=== PATIENT | male | born 1985 | race Caucasian/White ===

== ENCOUNTER 2018-08-15 08:14 | Day surgery (SDC) | payer OTHER ==
[2018-08-09 10:58] VITALS: BMI 28.2
--- NOTE | 2018-08-15 07:14 | HP ---
History & Physical Update - History History: No Change - Physical Physical: No Change - Assessment Assessment: No Change - Plan Plan: No Change (Initial H&P is in his paper chart. No new complaints or medications. Here today for L4-S1 TLIF.)
[2018-08-15] MEDS ORDERED: CEFAZOLIN 2 GM/D5W 2 GM/50 ML ML IVPB ONE (08:25)
[2018-08-15] MEDS ORDERED: oxyCODONE HCL 10 MG SUSTAINED ACTING TABLET PO STA (08:25)
[2018-08-15] MEDS ORDERED: oxyCODONE HCL 10 MG SUSTAINED ACTING TABLET ONE (09:05)
[2018-08-15] MEDS ORDERED: methylPREDNISolone ACET (DEPO) 40 MG/1 ML VIAL ONE (10:20)
[2018-08-15] MEDS ORDERED: LIDOCAINE 1%/EPI 1:100000 (20 ML MULTI DOSE VIAL) ONE (10:21)
[2018-08-15] MEDS ORDERED: THROMBIN (BOVINE) 5,000 UNIT VIAL TP ONE ×2 (10:21→12:02)
[2018-08-15] MEDS ORDERED: MIDAZOLAM HCL 2 MG/2 ML SINGLE DOSE VIAL ONE ×2 (10:32→12:06)
[2018-08-15] MEDS ORDERED: ROPIVACAINE HCL 0.5% 30ML VIAL ONE (10:32)
[2018-08-15] MEDS ORDERED: BUPIVACAINE HCL/PF 0.5% (5MG/ML) 10 ML VIAL ONE (11:07)
[2018-08-15] MEDS ORDERED: GUM MASTIC/STORAX/MSAL/ALCOHOL 1 DRP DROPSBTL MC ONE (11:41)
[2018-08-15] MEDS ORDERED: ceFAZolin SODIUM 1 GM VIAL ONE (11:48)
[2018-08-15] MEDS ORDERED: DEXAMETHASONE SOD PHOSPHATE 4 MG/1 ML VIAL ONE (11:56)
[2018-08-15] MEDS ORDERED: oxyCODONE HCL 5 MG TABLET PO PRN ×2 (12:01)
[2018-08-15] MEDS ORDERED: ONDANSETRON 4 MG/2 ML VIAL IVPUSH PRN (12:01)
[2018-08-15] MEDS ORDERED: methylPREDNISolone ACET (DEPO) 40 MG/1 ML VIAL IM ONE (12:03)
[2018-08-15] MEDS ORDERED: GELATIN, ABSORBABLE 100 EACH SPONGE TP ONE (12:03)
[2018-08-15] MEDS ORDERED: LACTATED RINGERS SOLUTION 1,000 ML IV SCH (12:15)
--- NOTE | 2018-08-15 13:10 | OP ---
Operative Note - Note: Operative Date: 08/15/18 Pre-Operative Diagnosis: L4-S1 stenosis with radiculopathy Operation: L4-S1 bilateral laminectomy with discectomy Post-Operative Diagnosis: Same as Pre-op Surgeon: Natan Garland Eligibility Examiner: Karthikeyan Alves Anesthesiologist/NET DEVELOPMENT MANAGER: Noam Blair Anesthesia: Spinal Estimated Blood Loss (mls): 20 Fluid Volume Replaced (mls): 1,200 Operative Report Dictated: Yes
--- NOTE | 2018-08-15 13:11 | SURG ---
Surgery Steam Table Attendant Note Steam Table Attendant: Karthikeyan Alves PA-C Date of Service: 08/15/18 Diagnosis: L4-S1 spinal stenosis with radiculopathy, HNP Procedure: L4-S1 bilateral laminectomy with discectomy I was present for the entirety of the operative procedure. For further detail, please refer to operative report. Visit type - Case Type Case Type: Scheduled - New patient This patient is new to me today: Yes Date on this admission: 08/15/18
[2018-08-15] MEDS ORDERED: ONDANSETRON 4 MG/2 ML VIAL ONE (13:56)
[2018-08-15 15:03] VITALS: TEMP 98.4
[2018-08-15] MEDS ORDERED: oxyCODONE HCL 5 MG TABLET ONE (15:08)
[2018-08-15] MEDS ORDERED: KETOROLAC TROMETHAMINE 30 MG/1 ML VIAL ONE (16:00)
--- NOTE | 2018-08-15 16:20 | OP ---
DATE OF OPERATION: 08/15/2018 PREOPERATIVE DIAGNOSIS: Spinal stenosis, L4-L5. POSTOPERATIVE DIAGNOSIS: Spinal stenosis, L4-L5. PROCEDURE PERFORMED: Laminectomy, L4-L5. SURGEON: Natan Garland MD SECTION MAINTAINER: ERIC Crane ESTIMATED BLOOD LOSS: 50 mL. INTRAVENOUS FLUIDS: Per Anesthesia. ANESTHESIA: Spinal/TLIP. COMPLICATIONS: None. DISPOSITION: Patient brought to the PACU in stable condition. INDICATIONS FOR SURGERY: The patient is a 32-year-old gentleman who has been suffering from pain from his back down his leg. X-rays and MRI were completed which showed that he has spinal stenosis at L4-5. He had gone through an exhaustive course of treatment which included medications, physical therapy, as well as injections. Unfortunately, the pain continued to persist despite all this. At this point, risks, benefits and alternatives were discussed and the patient consented to surgery. OPERATIVE NOTE: The patient was brought to the operating room by the Anesthesia staff. After appropriate patient identification was performed, and spinal anesthesia was given, appropriate anesthetic lines were placed. SCDs were placed on the patient. The patient was positioned prone onto the Chan frame with all areas of bony prominences well added at this time. Two needles were placed into the back to heather off the L4-L5 segments. X-rays taken to confirm this was correct. Needle was removed and 10 mL of lidocaine with epinephrine was injected into his back at this time. His back was prepped and draped in a sterile manner. A timeout was completed. An incision was made from the top of L4 down to the bottom of L5. Dissection was carried down to the fascia. The fascia was split open at this time and appropriate retractors were then placed in. A spinal needle was placed onto the L4 lamina to heather off the L4-5 level. X-rays taken to confirm this was correct. Needle was removed and the microscope was brought in. The interspinous ligament at L4-5 and L5-S1 was removed. Portions of the L5 spinous process and the L5 lamina were removed Flavum was identified as removed. A complete decompression was performed, such that the L5 nerve root was well decompressed. The nerve was mobilized medially. Disk herniation noted; it was removed at this time. By the end of the procedure, the L5 nerve root appeared to be well decompressed. All bleeding was well controlled at this time. Steroid was placed over the nerve root, Floseal was placed over that. The fascia was closed with a number-1 Vicryl suture, subcutaneous tissues were closed with 2-0 Vicryl suture, and skin was closed with 3-0 Monocryl suture. Dermabond was applied. Steri-Strips were applied. A sterile dressing was applied. The patient was placed supine on the OR bed and brought to the PACU in stable condition. Rich ORTIZ/[id number] MTDD
[2018-08-15 17:50] VITALS: BP 118/74; PULSE 71
--- NOTE | 2018-08-19 13:14 | PATH ---
Surgical Pathology Report Patient Name: GELACIO HEREDIA [facility]. Rec. #: [id number] /Age/Gender: 1985 (Age: 32) / M Account: [id number] Location: [facility] Taken: 08/15/2018 Received: 08/15/2018 Reported: 08/19/2018 Physicians: Natan Garland M.D. Specimen(s) Received L4-5 DISC Clinical History Spinal stenosis Final Diagnosis DISC, L4-5, LAMINECTOMY: BENIGN INTERVERTEBRAL DISC TISSUE. Electronically Signed Bonny Perez M.D. Gross Description Received in formalin labeled "L4-5 disc," is a 0.7 x 0.4 x 0.1 cm aggregate of holley fragments of fibrocartilaginous tissue. The specimen is submitted in toto in one cassette. 08/16/201808/16/2018
== END 2018-08-15 17:50 | disposition home or self-care (01) ==
LOC: FASU 08:14
PROVIDERS: ATTEND Orthopaedic Surgery Orthopaedic Surgery of the Spine
PROC: 0SB20ZZ Excision of Lumbar Vertebral Disc, Open Approach (ICD-10-PCS; 2018-08-15)
PROC: 01NB0ZZ Release Lumbar Nerve, Open Approach (ICD-10-PCS; principal; 2018-08-15 11:49)
DX: M48.061 Spinal stenosis, lumbar region without neurogenic claudication (principal)
CPT/HCPCS: 72100-TC-FY; 88304-TC; 94760

== ENCOUNTER 2020-02-13 08:05 | Inpatient (IN) | payer OTHER ==
[2020-02-13 08:16] VITALS: TEMP 97.5; BMI 29.0
[2020-02-13] MEDS ORDERED: KETOROLAC TROMETHAMINE 15 MG/ML VIAL IVPUSH ONE (08:33)
[2020-02-13] MEDS ORDERED: SODIUM CHLORIDE 0.9% 500 ML INFUS.BAG IV ONE (08:33)
--- NOTE | 2020-02-13 08:36 | PDOC ---
History of Present Illness - General Chief Complaint: Pain, Acute Stated Complaint: ABD PAIN Time Seen by Provider: 02/13/20 08:18 History Source: Patient Exam Limitations: No Limitations - History of Present Illness Initial Comments: 02/13/20 08:34 34M PMH LBP c/o acute onset colicky left flank pain for 1 day w/o f/c/n/v. Denies dysuria, hematuria. no h/o stones, no testicular pain or swelling. no rashes. Pt has never had pain like this before. Endorses occasional etoh use. NKDA. Past History - Medical History Allergies/Adverse Reactions: Allergies Allergy/AdvReac Type Severity Reaction Status Date / Time No Known Allergies Allergy Verified 02/13/20 08:35 Home Medications: Ambulatory Orders Tamsulosin HCl [Flomax -] 0.4 mg PO DAILY@0830 #14 cap.er.24h 02/13/20 Anemia: No Asthma: No Cancer: No Cardiac Disorders: No CVA: No COPD: No CHF: No Dementia: No Diabetes: No GI Disorders: No Disorders: No HTN: No Hypercholesterolemia: No Liver Disease: No Seizures: No Thyroid Disease: No - Surgical History Orthopedic Surgery: (CORTIZONE INJECTIONS) - Psycho-Social/Smoking History Smoking Status: Yes Smoking History: Current some day smoker Have you smoked in the past 12 months: No Number of Cigarettes Smoked Daily: 2 Information on smoking cessation initiated: No - Substance Abuse Hx (Audit-C & DAST Scrn) How often the patient has a drink containing alcohol: Monthly or less Number of drinks the patient has on a typical day: 1 or 2 How often the patient has six or more drinks on one occasion: Weekly Score: In Men: 4 or > Positive; In Women: 3 or > Positive: 4 Screen Result (Pos requires Nsg. Audit-10AR): Positive In the last yr the pt used illegal drug/Rx for NonMed reason: No Score: Yes response is considered Positive: 0 Screen Result (Positive result requires Nsg. DAST-10): Negative Review of Systems - Review of Systems Comments:: 02/13/20 22:41 CONSTITUTIONAL: Denies F / C HEENT: Denies headache, lightheadedness, dizziness RESP: Denies SOB, cough CARD: Denies chest pain GI: +left flank pain. Denies N / V / D, inability to tolerate PO : Denies dysuria, hematuria NEURO: Denies numbness, tingling, weakness MSK: endorse chronic back pain, unchanged SKIN: Denies rashes *Physical Exam - Vital Signs Last Vital Signs Temp Pulse Resp BP Pulse Ox 97.5 F L 67 18 132/82 99 02/13/20 08:15 02/13/20 08:15 02/13/20 08:15 02/13/20 08:15 02/13/20 08:15 - Physical Exam 02/13/20 22:41 GEN: uncomfortable 2/2 pain. AAOx3. HEENT: NC/AT, EOMI. No facial asymmetry. Normal voice. Supple neck w/ FROM. CV: S1/S2, RRR, no m/r/g LUNG: CTAB, no wheezes, crackles, rales, rhonchi. GI: +LCVAT, mild TTP LLQ, o/w soft, nondistended, neg guarding, BS wnl. MSK: No obvious deformities of all extremities. SKIN: Warm, dry, no rashes appreciated. PSYCH: Normal mood and affect. NEURO: Moving all extremities well. Ambulates wnl. ED Treatment Course - LABORATORY CBC & Chemistry Diagram: 02/13/20 08:35 02/13/20 08:35 - RADIOLOGY Radiology Studies Ordered: Category Date Time Status SPIRAL- RENAL-STONE CT [CT] Stat CT Scan 02/13/20 08:32 Ordered Medical Decision Making - Medical Decision Making 02/13/20 22:41 02/13/20 08:34 34M c/o left flank pain w/ CVAT. No f/c. most likely renal stone; consider pyelo, UTI CBC, CMP UA, UC Toradol, fluids spiral CT 02/13/20 10:[address] Patt Hernandez - admit, npo, c/s 02/13/20 13:19 patient was endorsed to hospitalist team EKG for admission; 12:23 HR 71, intervals and axis wnl, NSR, no ENRIQUE/D, no TWI 02/13/20 13:20 UA reviewed; blood c/w stone Discharge - Discharge Information Problems reviewed: Yes Clinical Impression/Diagnosis: Kidney stone on left side Condition: Stable Disposition: HOME - Follow up/Referral - Patient Discharge Instructions - Post Discharge Activity
[2020-02-13] MEDS ORDERED: KETOROLAC TROMETHAMINE 15 MG/ML VIAL ONE (08:41)
[2020-02-13 08:46] LABS: BASO % 0.6 % (0-2.0); EOS % 1.6 % (0-4.5); HEMATOCRIT 44.3 % (35.4-49); LYMPH % 39.4 % (8-40); MCH 29.2 pg (25.7-33.7); MCHC 33.8 g/dl (32.0-35.9); MEAN CELL VOLUME 86.4 fl (80-96); MEAN PLT VOLUME 11.1 fl (7.5-11.1); MONO % 5.1 % (3.8-10.2); NEUT % 53.3 % (42.8-82.8); PLATELET COUNT 180 K/MM3 (134-434); RBC 5.12 M/mm3 (4.00-5.60); WHITE BLOOD COUNT 7.9 K/mm3 (4.0-10.0)
[2020-02-13 09:13] LABS: ALBUMIN 4.4 g/dl (3.4-5.0); BILIRUBIN,TOTAL 0.3 mg/dL (0.2-1); CALCIUM 8.9 mg/dL (8.5-10.1); CREATININE 0.9 mg/dL (0.55-1.3); POTASSIUM 4.3 mmol/L (3.5-5.1); TOT PROT 7.8 g/dl (6.4-8.2)
--- NOTE | 2020-02-13 10:39 | PDOC ---
Documentation entered by Dannielle Mondragon SCRIBE, acting as scribe for Cara Bauer MD. Cara Bauer MD: This documentation has been prepared by the scribe, Dannielle Dai SCRIBE, under my direction and personally reviewed by me in its entirety. I confirm that the documentation accurately reflects all work, treatment, procedures, and medical decision making performed by me. Attending Attestation - Resident Resident Name: Duane Gill - ED Attending Attestation I have performed the following: I have examined & evaluated the patient, The case was reviewed & discussed with the resident, I agree w/resident's findings & plan, Exceptions are as noted - HPI HPI: 02/13/20 09:53 The patient is a 34 year old male with a significant PMH of LBP who presents to the emergency department for evaluation of 1 day of an acute onset of colicky left flank pain. The patient denies chest pain, shortness of breath, headache and dizziness. Denies fever, chills, nausea, vomiting, diarrhea and constipation. Denies dysuria, frequency, urgency and hematuria. Allergies: NKA Social history: Occasional etoh use. - Physicial Exam PE: GENERAL: Awake, alert, and fully oriented. Appears uncomfortable. HEAD: No signs of trauma EYES: PERRLA, EOMI, sclera anicteric, conjunctiva clear ENT: Auricles normal inspection, hearing grossly normal, nares patent, oropharynx clear without exudates. Moist mucosa NECK: Normal ROM, supple, no lymphadenopathy, JVD, or masses LUNGS: Breath sounds equal, clear to auscultation bilaterally. No wheezes, and no crackles HEART: Regular rate and rhythm, normal S1 and S2, no murmurs, rubs or gallops ABDOMEN: Soft, +L mid-abdominal tenderness, normoactive bowel sounds. No guarding, no rebound. No masses EXTREMITIES: Normal range of motion, no edema. No clubbing or cyanosis. No cords, erythema, or tenderness NEUROLOGICAL: Cranial nerves II through XII grossly intact. Normal speech, normal gait. Motor and sensation intact SKIN: Warm, dry, normal turgor, no rashes or lesions noted. - Medical Decision Making Pt with suspected kidney stone. Will obtain labs, urine, spiral CT. Discharge - Discharge Information Problems reviewed: Yes Clinical Impression/Diagnosis: Kidney stone on left side Condition: Stable Disposition: HOME - Follow up/Referral - Patient Discharge Instructions - Post Discharge Activity
--- NOTE | 2020-02-13 11:10 | PN ---
Teaching Attending Note Name of Resident: Aleksey Nielsen ATTENDING PHYSICIAN STATEMENT I saw and evaluated the patient. I reviewed the resident's note and discussed the case with the resident. I agree with the resident's findings and plan as documented. SUBJECTIVE: 34 year old male with known history of chronic back pains who presented to the ED complaining of acute onset colicky left flank pain not associated with fever nor chills. At the ED, CT scan of the abdomen showed obstructing left renal stones with mild left hydronephrosis and left hydroureter OBJECTIVE: Gen appears appropriate for stated age neck; supple chest: diminished breath sounds cVS: RRR abd: soft, nontender, nondistended, +BS ext; no edema, feet are warm and dry supervisor [employer] no motor nor sensory deficit ASSESSMENT AND PLAN: 1. Renal stones with hydronephrosis - pain control - urine culture pending - urologist informed of consultation 2. cardiovascular risk assessment: Patient denies any shortness of breath or chest pains at rest or with activity. 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 Patient is an acceptable candidate for surgery without further testing. 3. DVT prophylaxis - SCD Agree with history, exam and plans of care.
[2020-02-13 12:08] LABS: URINE APPEARANCE Clear; URINE BILIRUBIN Negative (NEGATIVE); URINE COLOR Yellow; URINE GLUCOSE (UA) Negative (NEGATIVE); URINE KETONE Negative (NEGATIVE); URINE LEUK ESTERASE Negative (NEGATIVE); URINE NITRITE Negative (NEGATIVE); URINE PROTEIN Negative (NEGATIVE); URINE UROBILINOGEN 0.2 mg/dL (0.2-1.0)
[2020-02-13] MEDS ORDERED: KETOROLAC TROMETHAMINE 15 MG/ML VIAL IVPUSH PRN (12:50)
[2020-02-13] MEDS ORDERED: ONDANSETRON 4 MG/2 ML VIAL IVPUSH PRN (12:58)
[2020-02-13] MEDS ORDERED: SODIUM CHLORIDE 1,000 ML IV SCH (13:00)
--- NOTE | 2020-02-13 13:38 | HP ---
CHIEF COMPLAINT: PCP: HISTORY OF PRESENT ILLNESS: 34M w/ pmh of LBP(10ys) presenting to [facility] after having had sudden onset frontal L-sided pain, lasting 2hs. Had vague severe Left-sided lower abdominal pain last night after eating dinner. Lasted 2hours, thought it was related to the food. This morning, was woken up in sleep due to sudden onset 10 of 10 L- sided abdominal pain radiating to the back this monring. Now pain is 2 of 10 after administration of Toradol in ED. No previous similiar episodes in the past. Denies discoloration of urine. No nausea, no vomiting, no diarrhea. Drinks 1L water everyday. ER course was notable for: 1-afeb, HR 67, BP 132/82, 99%(RA) 2-(+)L-sided CVA tenderness 3-no leukocytosis 4-UA: blood 3+ 5-Cr 0.9 6- CT spiral: Left obstructing stone([id number]) in the mid Left ureter, w/ Left hydronephrosis and proximal hydroureter. Right kidney w/o hydronephrosis. 7Questionable tiny diverticula in proximal sigmoid colon. Mild degenerative disc disease at L5-S1, posteriorly 8-NS 1L, toradol 15mg IVP 9-discussed with Tino Hernandez, who said he would evaluate the patient Recent Travel: denies PAST MEDICAL HISTORY: lower back pain PAST SURGICAL HISTORY: unspecified back surgery(2019) Social History: Smoking: denies Alcohol: denies Drugs: denies Allergies No Known Allergies Allergy (Verified 02/13/20 08:35) HOME MEDICATIONS: Home Medications Medication Instructions Recorded Gabapentin 300 mg PO BID 08/09/18 Hydrocodone/Acetaminophen 1 each PO Q8H PRN 08/09/18 [Hydrocodon-Acetaminophn 10-325] Diazepam [Valium] 2 mg PO TID PRN #24 tablet MDD 3 08/15/18 Tramadol HCl 50 mg PO Q6H PRN #30 tablet MDD 4 08/15/18 REVIEW OF SYSTEMS CONSTITUTIONAL: Absent: fever, chills, diaphoresis, generalized weakness, malaise, loss of appetite, weight change HEENT: Absent: rhinorrhea, nasal congestion, throat pain, throat swelling, difficulty swallowing, mouth swelling, ear pain, eye pain, visual changes CARDIOVASCULAR: Absent: chest pain, syncope, palpitations, irregular heart rate, lightheadedness, peripheral edema RESPIRATORY: Absent: cough, shortness of breath, dyspnea with exertion, orthopnea, wheezing, stridor, hemoptysis GASTROINTESTINAL: Absent: abdominal pain, abdominal distension, nausea, vomiting, diarrhea, constipation, melena, hematochezia GENITOURINARY: Left Flank Pain Absent: dysuria, frequency, urgency, hesitancy, hematuria, genital pain MUSCULOSKELETAL: Absent: myalgia, arthralgia, joint swelling, back pain, neck pain SKIN: Absent: rash, itching, pallor HEMATOLOGIC/IMMUNOLOGIC: Absent: easy bleeding, easy bruising, lymphadenopathy, frequent infections ENDOCRINE: Absent: unexplained weight gain, unexplained weight loss, heat intolerance, cold intolerance NEUROLOGIC: Absent: headache, focal weakness or paresthesias, dizziness, unsteady gait, seizure, mental status changes, bladder or bowel incontinence PSYCHIATRIC: Absent: anxiety, depression, suicidal or homicidal ideation, hallucinations. PHYSICAL EXAMINATION Vital Signs - 24 hr 02/13/20 02/13/20 02/13/20 08:14 08:15 08:52 Temperature 97.5 F L Pulse Rate 67 Respiratory 18 16 Rate Blood Pressure 132/82 O2 Sat by Pulse 99 99 99 Oximetry (%) GENERAL: Awake, alert, and fully oriented, in no acute distress. HEAD: Normal with no signs of trauma. EYES: extraocular movements intact, sclera anicteric, conjunctiva clear. EARS, NOSE, THROAT: Ears normal, nares patent, oropharynx clear without exudates. Moist mucous membranes. NECK: Normal range of motion, supple without lymphadenopathy, JVD, or masses. LUNGS: Breath sounds equal, clear to auscultation bilaterally. No wheezes, and no crackles. No accessory muscle use. HEART: Regular rate and rhythm, normal S1 and S2 without murmur, rub or gallop. ABDOMEN: Soft, Mild Left-sided abdominal tenderness, not distended, normoactive bowel sounds, no guarding. Positive Right-sided CVA tenderness MUSCULOSKELETAL: Normal range of motion at all joints. No bony deformities or tenderness. UPPER EXTREMITIES: 2+ pulses, warm, well-perfused. No cyanosis. No clubbing. No peripheral edema. LOWER EXTREMITIES: 2+ pulses, warm, well-perfused. No calf tenderness. No peripheral edema. NEUROLOGICAL: Moving all extremities spontaneously. Normal speech. SKIN: Warm, dry, normal turgor, no rashes or lesions noted, normal capillary refill. Laboratory Results - last 24 hr 02/13/20 02/13/20 02/13/20 08:35 08:35 10:05 WBC 7.9 RBC 5.12 Hgb 15.0 Hct 44.3 MCV 86.4 MCH 29.2 MCHC 33.8 RDW 14.0 Plt Count 180 MPV 11.1 Absolute Neuts (auto) 4.2 Neutrophils % 53.3 D Lymphocytes % 39.4 D Monocytes % 5.1 Eosinophils % 1.6 Basophils % 0.6 Nucleated RBC % 0 Sodium 140 Potassium 4.3 Chloride 110 H Carbon Dioxide 22 Anion Gap 8 BUN 16.0 Creatinine 0.9 Est GFR (CKD-EPI)AfAm 126.90 Est GFR (CKD-EPI)NonAf 109.49 Random Glucose 136 H Calcium 8.9 Total Bilirubin 0.3 AST 26 ALT 51 Alkaline Phosphatase 106 Total Protein 7.8 Albumin 4.4 Urine Color Yellow Urine Appearance Clear Urine pH 7.0 Ur Specific [place] 1.025 Urine Protein Negative Urine Glucose (UA) Negative Urine Ketones Negative Urine Blood 3+ H Urine Nitrite Negative Urine Bilirubin Negative Urine Urobilinogen 0.2 Ur Leukocyte Esterase Negative ASSESSMENT/PLAN: 34M w/ pmh of LBP(10ys) presenting to [facility] after having had sudden onset frontal L-sided pain, lasting 2hs. Had vague severe Left-sided lower abdominal pain now radiating to the Left flank. HD stable. Labs notable for UA with blood 3+. Imaging notable for Left-sided ureteral obstruction from 8h7m8al. Admitted for mgmt of kidney stone #Left-sided ureteral obstruction w/ [id number] stone > Cr 0.9 > UA: blood 3+ > CT spiral: Left obstructing stone([id number]) in the mid Left ureter, w/ Left hydronephrosis and proximal hydroureter. Right kidney w/o hydronephrosis. 7Questionable tiny diverticula in proximal sigmoid colon. Mild degenerative disc disease at L5-S1, posteriorly - pain control: --toradol PRN - IVF - Urology consult(N Mary): --start Flomax --as per phone conversation --observe for 24hs before deciding on procedure FEN - NS @83 - NPO in-case of procedure DVT PPX - SCDs Family Medical History Family History: As Documented Family Hx Diabetes: Mother Visit type - Emergency Visit Emergency Visit: Yes ED Registration Date: 02/13/20 Care time: The patient presented to the Emergency Department on the above date and was hospitalized for further evaluation of their emergent condition. - New Patient This patient is new to me today: Yes Date on this admission: 02/13/20 - Critical Care Critical Care patient: No ATTENDING PHYSICIAN STATEMENT I saw and evaluated the patient. I reviewed the resident's note and discussed the case with the resident. I agree with the resident's findings and plan as documented. SUBJECTIVE: OBJECTIVE: ASSESSMENT AND PLAN:
--- NOTE | 2020-02-13 17:01 | CONS ---
DATE OF CONSULTATION: DATE OF DICTATION: 02/13/2020 HISTORY OF PRESENT ILLNESS: Patient is a 34-year-old male presents to the emergency room with left flank pain, states that is has been going on for 1 day, it is colicky in nature and radiates to the left groin. He denies chest pain, voiding symptoms, or hematuria. He denies any allergies. He drinks socially. He appears to be alert, oriented. His abdomen is soft. There is mid abdominal tenderness. Genitalia are atraumatic. Testes are normal in size and consistency. CT scan of the abdomen revealed a mild left hydronephrosis with a 5 x 4 mm stone in the left mid ureter. The patient's white count is 7.9, his urine is heme positive, nitrite negative. BUN and creatinine are 16/0.9. IMPRESSION: At present is 5-mm left renal stone, most likely will pass spontaneously. Will recommend increase in fluid intake, ambulate patient on Flomax 0.4 mg daily and straining the urine. Will follow with you. LUCIO CARTER M.D. [id number]
[2020-02-13] MEDS ORDERED: TAMSULOSIN HCL 0.4 MG CAP PO ONE (17:25)
[2020-02-13] MEDS ORDERED: TAMSULOSIN HCL 0.4 MG CAP PO STA (17:26)
[2020-02-13] MEDS ORDERED: TAMSULOSIN HCL 0.4 MG CAP ONE (17:40)
--- NOTE | 2020-02-13 19:08 | DS ---
Physical Exam: SUBJECTIVE: Patient seen and examined OBJECTIVE: Vital Signs Period Temp Pulse Resp BP Sys/Bone Pulse Ox Last 24 Hr 97.5 F 64-67 16-18 111-132/79-82 99-100 PHYSICAL EXAM GENERAL: Awake, alert, and fully oriented, in no acute distress. HEAD: Normal with no signs of trauma. EYES: extraocular movements intact, sclera anicteric, conjunctiva clear. EARS, NOSE, THROAT: Ears normal, nares patent, oropharynx clear without exudates. Moist mucous membranes. NECK: Normal range of motion, supple without lymphadenopathy, JVD, or masses. LUNGS: Breath sounds equal, clear to auscultation bilaterally. No wheezes, and no crackles. No accessory muscle use. HEART: Regular rate and rhythm, normal S1 and S2 without murmur, rub or gallop. ABDOMEN: Soft, Mild Left-sided abdominal tenderness, not distended, normoactive bowel sounds, no guarding. Positive Right-sided CVA tenderness MUSCULOSKELETAL: Normal range of motion at all joints. No bony deformities or tenderness. UPPER EXTREMITIES: 2+ pulses, warm, well-perfused. No cyanosis. No clubbing. No peripheral edema. LOWER EXTREMITIES: 2+ pulses, warm, well-perfused. No calf tenderness. No peripheral edema. NEUROLOGICAL: Moving all extremities spontaneously. Normal speech. SKIN: Warm, dry, normal turgor, no rashes or lesions noted, normal capillary refill. LABS Laboratory Results - last 24 hr 02/13/20 02/13/20 02/13/20 08:35 08:35 10:05 WBC 7.9 RBC 5.12 Hgb 15.0 Hct 44.3 MCV 86.4 MCH 29.2 MCHC 33.8 RDW 14.0 Plt Count 180 MPV 11.1 Absolute Neuts (auto) 4.2 Neutrophils % 53.3 D Lymphocytes % 39.4 D Monocytes % 5.1 Eosinophils % 1.6 Basophils % 0.6 Nucleated RBC % 0 Sodium 140 Potassium 4.3 Chloride 110 H Carbon Dioxide 22 Anion Gap 8 BUN 16.0 Creatinine 0.9 Est GFR (CKD-EPI)AfAm 126.90 Est GFR (CKD-EPI)NonAf 109.49 Random Glucose 136 H Calcium 8.9 Total Bilirubin 0.3 AST 26 ALT 51 Alkaline Phosphatase 106 Total Protein 7.8 Albumin 4.4 Urine Color Yellow Urine Appearance Clear Urine pH 7.0 Ur Specific [place] 1.025 Urine Protein Negative Urine Glucose (UA) Negative Urine Ketones Negative Urine Blood 3+ H Urine Nitrite Negative Urine Bilirubin Negative Urine Urobilinogen 0.2 Ur Leukocyte Esterase Negative HOSPITAL COURSE: Date of Admission:02/13/20 Date of Discharge: 02/13/20 34M w/ pmh of LBP(10ys) presenting to [facility] after having had sudden onset frontal L-sided pain, lasting 2hs. Had vague severe Left-sided lower abdominal pain then radiating to the Left flank. HD stable. Labs notable for UA with blood 3+. Imaging notable for Left-sided ureteral obstruction from [id number]. Admitted for mgmt of kidney stone. Pt refused surgical intervention. Dr Ozzy Hernandez was consulted. Pt's flank pain improved after Toradol. PO intake was encouraged. Pt deemed stable for discharge home. Minutes to complete discharge: 35 Discharge Summary Problems reviewed: Yes Reason For Visit: CALCULUS OF KIDNEY Condition: Stable - Instructions Diet, Activity, Other Instructions: You were evaluated in the hospital for severe Left-sided abdominal pain that radiated to your Left flank. CT imaging showed a Left obstructing stone([id number]) in the mid Left ureter with signs of obstruction. You were given intravenous fluids, and started a new medication to have you pass the kidney stone. It was recommended that you stay for an admission, but you ultimately decided you would not want to pursue any surgical intervention. You were deemed stable for discharge home MEDICATIONS: - Tamsulosin[FLOMAX] 0.4mg, take once daily - over the counter NSAIDs(eg. ibuprofen, naproxen). You can take 1-2 tablets every 6-8hours as needed for pain Additional Instructions: - please drink 6-8 glasses of water every day - please retrieve any stone you may urinate out, as labwork and analysis can be performed on it --please be aware that passing the stone may be a painful process Please seek immediate medical care if you experience: - nausea, vomiting - worsening of your Left-sided abdominal pain - fever, chills, Referrals: Ofelia Hernandez MD [Staff Physician] - Disposition: HOME - Home Medications Comprehensive Discharge Medication List: Ambulatory Orders Tamsulosin HCl [Flomax -] 0.4 mg PO DAILY@0830 #14 [email or web address] 02/13/20 This patient is new to me today: Yes Date on this admission: 02/13/20 Emergency Visit: Yes ED Registration Date: 02/13/20 Care time: The patient presented to the Emergency Department on the above date and was hospitalized for further evaluation of their emergent condition. Critical Care patient: No - Discharge Referral Referred to [facility] Med P.C.: No ATTENDING PHYSICIAN STATEMENT I saw and evaluated the patient. I reviewed the resident's note and discussed the case with the resident. I agree with the resident's findings and plan as documented. SUBJECTIVE: OBJECTIVE: ASSESSMENT AND PLAN:
--- NOTE | 2020-02-13 19:19 | PN ---
Teaching Attending Note Name of Resident: Aleksey Nielsen ATTENDING PHYSICIAN STATEMENT I saw and evaluated the patient. I reviewed the resident's note and discussed the case with the resident. I agree with the resident's findings and plan as documented. SUBJECTIVE: Patient would like to go home and just follow up with his primary care physic kem. He refuses to undergo surgery. He feels better overall OBJECTIVE: Please refer to Dr Nielsen's exam for details of exam ASSESSMENT AND PLAN: Patient will be discharged today He will get a script for flomax x 14 days counseled to follow up with Primary care physician within 5-7 days tylenol for pain control If develops fever, chills, then need to call physician or go back to the ED DW Dr Nielsen and agree with plans of care.
[2020-02-13 19:32] VITALS: BP 138/65; PULSE 80
[2020-02-14] MEDS ORDERED: TAMSULOSIN HCL 0.4 MG CAP PO SCH (08:30)
--- NOTE | 2020-02-16 22:02 | EKG ---
Test Reason : Blood Pressure : / mmHG Vent. Rate : 071 BPM Atrial Rate : 071 BPM P-R Int : 166 ms QRS Dur : 084 ms QT Int : 376 ms P-R-T Axes : 035 069 044 degrees QTc Int : 408 ms NORMAL SINUS RHYTHM NORMAL ECG WHEN COMPARED WITH ECG OF 12-MAY-2012 11:17, NO SIGNIFICANT CHANGE WAS FOUND Confirmed by CAITIE GOULD MD ([id number]) on 02/16/2020 10:02:18 PM Referred By: Confirmed By:CAITIE GOULD MD
== END 2020-02-13 19:22 | disposition home or self-care (01) | DRG 465 ==
LOC: JER 08:05 → JERBED 10:56
PROVIDERS: ADMIT Internal Medicine; ATTEND Internal Medicine
DX: N13.2 Hydronephrosis with renal and ureteral calculous obstruction (principal); R10.9 Unspecified abdominal pain; K57.90 Diverticulosis of intestine, part unspecified, without perforation or abscess without bleeding; F17.210 Nicotine dependence, cigarettes, uncomplicated
CPT/HCPCS: 36415; 74176-TC; 80053; 81003; 85025; 87086; 93005; 93010; 99285-25; U0003

== ENCOUNTER 2023-06-22 10:58 | Emergency (ER) | payer SELFPAY ==
[2023-06-22 11:20] VITALS: BP 120/69; PULSE 76; RESP 18; TEMP 98.5; BMI 29.0
[2023-06-22] MEDS ORDERED: SODIUM CHLORIDE 0.9% 500 ML INFUS.BAG IV ONE (12:07)
[2023-06-22] MEDS ORDERED: KETOROLAC TROMETHAMINE 30 MG/1 ML VIAL IVPUSH ONE (12:07)
[2023-06-22] MEDS ORDERED: KETOROLAC TROMETHAMINE 30 MG/1 ML VIAL ONE (12:16)
[2023-06-22 12:39] LABS: BASO % 0.9 % (0-2.0); EOS % 3.6 % (0-4.5); HEMATOCRIT 42.5 % (35.4-49); HEMOGLOBIN 14.2 GM/dL (11.7-16.9); LYMPH % 27.7 % (8-40); MCH 28.8 pg (25.7-33.7); MCHC 33.3 g/dl (32.0-35.9); MEAN CELL VOLUME 86.4 fl (80-96); MEAN PLT VOLUME 10.1 fl (7.5-11.1); MONO % 5.6 % (3.8-10.2); NEUT % 62.2 % (42.8-82.8); PLATELET COUNT 201 10^3/uL (134-434); RBC 4.92 M/mm3 (4.00-5.60); RDW 13.3 % (11.9-15.9); WHITE BLOOD COUNT 8.2 K/mm3 (4.0-10.0)
[2023-06-22 12:44] LABS: URINE APPEARANCE CLEAR; URINE BILIRUBIN NEGATIVE (NEGATIVE); URINE COLOR YELLOW; URINE GLUCOSE (UA) NEGATIVE (NEGATIVE); URINE KETONE NEGATIVE (NEGATIVE); URINE LEUK ESTERASE NEGATIVE (NEGATIVE); URINE NITRITE NEGATIVE (NEGATIVE); URINE PROTEIN NEGATIVE (NEGATIVE); URINE UROBILINOGEN 0.2 mg/dL (0.2-1.0)
[2023-06-22 13:12] LABS: POTASSIUM 4.1 mmol/L (3.5-5.1)
[2023-06-22 13:14] LABS: ALBUMIN 4.1 g/dl (3.4-5.0); BLOOD UREA NITROGEN 12.9 mg/dL (7-18); CALCIUM 9.5 mg/dL (8.5-10.1)
[2023-06-22 13:17] LABS: CREATININE 0.6 mg/dL (0.55-1.3)
[2023-06-22 13:19] LABS: BILIRUBIN,TOTAL 0.3 mg/dL (0.2-1); TOT PROT 7.6 g/dl (6.4-8.2)
[2023-06-22] MEDS ORDERED: TAMSULOSIN HCL 0.4 MG CAP PO ONE (14:32)
[2023-06-22] MEDS ORDERED: TAMSULOSIN HCL 0.4 MG CAP ONE (14:35)
== END 2023-06-22 14:40 | disposition home or self-care (01) ==
LOC: JERFT 10:58 → JER 10:58 → JERFT 14:40
PROC: 3E0333Z Introduction of Anti-inflammatory into Peripheral Vein, Percutaneous Approach (ICD-10-PCS; principal; 2023-06-22)
DX: R10.9 Unspecified abdominal pain (principal); M54.6 Pain in thoracic spine; N20.0 Calculus of kidney
CPT/HCPCS: 36415; 74176-TC; 80053; 81003; 85025; 86850; 86900; 86901; 87086; 99284-25